=== PATIENT | female | born 1980 | race Caucasian/White ===

== ENCOUNTER 2019-01-31 20:20 | Inpatient (IN) | payer MEDICARE, OTHER ==
[~2019-01-31 20:20] MED LIST: LORazepam 2 MG/ML INJ IV STA
[2019-01-31 20:29] LABS: Glucose,Whole Blood 100 mg/dL (75-99)
[2019-01-31] MEDS ORDERED: LORazepam 2 MG/ML INJ IV STA ×2 (22:11→23:43)
--- NOTE | 2019-01-31 22:11 | ED ---
Seizure HPI - General Chief Complaint: Seizure Stated Complaint: Seizure Time Seen by Provider: 01/31/19 21:21 Source: patient Mode of arrival: EMS Limitations: no limitations - History of Present Illness Initial Comments: Mallory is a 38 her old female with a significant seizure history who presents the emergency department today after an apparent seizure. [facility] Patient admits that she is noncompliant with her medications and she often forgets to take them. Patient reports that she is on Keppra, Depakote and Vempat, she has missed oral doses of her medications recently. Per friend at bedside the patient had a seizure at the penitentiary, they report that she fell to the ground and was shaking and was unresponsive. Patient does not recall this event. - Related Data Home Medications Medication Instructions Recorded Confirmed Depakote(Unknown) 1 dose PO DIRECTED 01/31/19 Dilantin(Unknown) 1 dose PO DIRECTED 01/31/19 Gabapentin [Neurontin] 600 mg PO TID 01/31/19 01/31/19 Keppra(Unknown) 1 dose PO DIRECTED 01/31/19 QUEtiapine FUMARATE [SEROquel] 600 mg PO HS 01/31/19 01/31/19 Sertraline [Zoloft] 100 mg PO DAILY 01/31/19 01/31/19 Vimpat(Unknown) 1 dose PO DIRECTED 01/31/19 hydrOXYzine HCL [Atarax] 25 mg PO DAILY PRN 01/31/19 01/31/19 Allergies Allergy/AdvReac Type Severity Reaction Status Date / Time acetaminophen [From NyQuil] Allergy Rash/Hives Verified 01/31/19 22:07 dextromethorphan Allergy Rash/Hives Verified 01/31/19 22:07 [From NyQuil] diphenhydramine Allergy Rash/Hives Verified 01/31/19 22:07 [From Benadryl] doxylamine [From NyQuil] Allergy Rash/Hives Verified 01/31/19 22:07 lorazepam [From Ativan] Allergy Anaphylaxis Verified 01/31/19 22:07 pseudoephedrine [From NyQuil] Allergy Rash/Hives Verified 01/31/19 22:07 Review of Systems ROS Statement: Those systems with pertinent positive or pertinent negative responses have been documented in the HPI. ROS Other: All systems not noted in ROS Statement are negative. Past Medical History Past Medical History: Seizure Disorder History of Any Multi-Drug Resistant Organisms: None Reported Additional Past Surgical History / Comment(s): D&C Past Psychological History: Bipolar, Depression, PTSD Smoking Status: Current every day smoker Past Alcohol Use History: None Reported Past Drug Use History: None Reported - Past Family History family Family Medical History: No Reported History General Exam - General Exam Comments Initial Comments: Physical Exam GENERAL: Patient is well-developed and well-nourished. Patient is nontoxic and well-hydrated and is in no distress. HENT: Normocephalic, Atraumatic. EYES: PERRL, EOMI PULMONARY: Unlabored respirations. No audible rales rhonchi or wheezing was noted. CARDIOVASCULAR: RRR ABDOMEN: Obese, soft and nontender with normal bowel sounds. SKIN: Multiple scars on bilateral arms consistent with history of self harm : Deferred NEUROLOGIC: Postictal upon initial evaluation Noted to have 2 tonic clonic seizures in the emergency department MUSCULOSKELETAL: Normal extremities with adequate strength and full range of motion. No lower extremity swelling or edema. No calf tenderness. PSYCHIATRIC: Normal psychiatric evaluation Limitations: no limitations Course Vital Signs 01/31/19 01/31/19 01/31/19 20:22 21:55 23:06 Temperature 98.9 F Pulse Rate 99 100 89 Respiratory 20 18 18 Rate Blood Pressure 139/91 122/89 O2 Sat by Pulse 100 95 96 Oximetry 01/31/19 01/31/19 02/01/19 23:10 23:48 01:00 Temperature 98 F Pulse Rate 98 86 84 Respiratory 18 16 16 Rate Blood Pressure 137/99 130/86 116/80 O2 Sat by Pulse 96 98 95 Oximetry 02/01/19 02:18 Temperature Pulse Rate 93 Respiratory 16 Rate Blood Pressure 110/67 O2 Sat by Pulse 97 Oximetry - Reevaluation(s) Reevaluation #1: Patient seizing again, 2mg IV ativan ordered 01/31/19 22:10 Medical Decision Making - Medical Decision Making The patient was seen and evaluated, patient with a extensive history of seizure disorder and medication noncompliance presents after a seizure [facility]. Patient was noted to have a seizure here in the emergency department, Upon my initial evaluation the patient was postictal, she did receive IM Ativan due to lack of vascular access. Less than 20 minutes later the patient was noted to have a second seizure at that time IV access was obtained in the foot and she was given IV Ativan. Patient's labs resulted with CBC and CMP within normal limits both Depakote and phenytoin levels were undetectable IV Keppra, Depakote and phenytoin were ordered at this time decision was made platelets a right IJ central line for vascular access Central and was placed without complication Patient was noted to have a third seizure here in the emergency department, a third dose of Ativan was given Keppra was infusing Patient care was discussed with Dr. Camacho of the [facility] physician group who accepts admission to ICU for status epilepticus Patient care was discussed with Dr. Stanley who will accept the patient to the ICU if neurology is available to take call, patient care then discussed with neurology casino controller Dr Harrell who will be available for neurology consult tonight and throughout the day tomorrow. Patient admitted to the ICU for Status Epilepticus secondary to medication non- compliance. - Lab Data Result diagrams: 01/31/19 22:50 01/31/19 22:50 Lab Results 01/31/19 01/31/19 01/31/19 Range/Units 20:27 21:50 22:19 WBC (3.8-10.6) k/uL RBC (3.80-5.40) m/uL Hgb (11.4-16.0) gm/dL Hct (34.0-46.0) % MCV (80.0-100.0) fL MCH (25.0-35.0) pg MCHC (31.0-37.0) g/dL RDW (11.5-15.5) % Plt Count (150-450) k/uL Neutrophils % % Lymphocytes % % Monocytes % % Eosinophils % % Basophils % % Neutrophils # (1.3-7.7) k/uL Lymphocytes # (1.0-4.8) k/uL Monocytes # (0-1.0) k/uL Eosinophils # (0-0.7) k/uL Basophils # (0-0.2) k/uL Sodium (137-145) mmol/L Potassium (3.5-5.1) mmol/L Chloride (98-107) mmol/L Carbon Dioxide (22-30) mmol/L Anion Gap mmol/L BUN (7-17) mg/dL Creatinine (0.52-1.04) mg/dL Est GFR (CKD-EPI)AfAm (>60 ml/min/1.73 sqM) Est GFR (CKD-EPI)NonAf (>60 ml/min/1.73 sqM) Glucose (74-99) mg/dL POC Glucose (mg/dL) 100 H 88 (75-99) mg/dL POC Glu Presser Cotton Ginning THEODORA Marks OzAurora fuentes Danielle Plasma Lactic Acid Edilberto (0.7-2.0) mmol/L Calcium (8.4-10.2) mg/dL Total Bilirubin (0.2-1.3) mg/dL AST (14-36) U/L ALT (9-52) U/L Alkaline Phosphatase (38-126) U/L Total Protein (6.3-8.2) g/dL Albumin (3.5-5.0) g/dL Urine Opiates Screen Not Detected (NotDetected) Ur Oxycodone Screen Not Detected (NotDetected) Urine Methadone Screen Not Detected (NotDetected) Ur Propoxyphene Screen Not Detected (NotDetected) Ur Barbiturates Screen Detected H (NotDetected) Phenytoin ug/mL Valproic Acid ug/mL U Tricyclic Antidepress Detected H (NotDetected) Ur Phencyclidine Scrn Not Detected (NotDetected) Ur Amphetamines Screen Not Detected (NotDetected) U Methamphetamines Scrn Not Detected (NotDetected) U Benzodiazepines Scrn Not Detected (NotDetected) Urine Cocaine Screen Not Detected (NotDetected) U Marijuana (THC) Screen Not Detected (NotDetected) 01/31/19 01/31/19 01/31/19 Range/Units 22:50 22:50 22:50 WBC 10.1 (3.8-10.6) k/uL RBC 4.03 (3.80-5.40) m/uL Hgb 11.6 (11.4-16.0) gm/dL Hct 34.7 (34.0-46.0) % MCV 86.1 (80.0-100.0) fL MCH 28.7 (25.0-35.0) pg MCHC 33.3 (31.0-37.0) g/dL RDW 15.6 H (11.5-15.5) % Plt Count 292 (150-450) k/uL Neutrophils % 64 % Lymphocytes % 26 % Monocytes % 5 % Eosinophils % 3 % Basophils % 1 % Neutrophils # 6.5 (1.3-7.7) k/uL Lymphocytes # 2.6 (1.0-4.8) k/uL Monocytes # 0.5 (0-1.0) k/uL Eosinophils # 0.3 (0-0.7) k/uL Basophils # 0.1 (0-0.2) k/uL Sodium 140 (137-145) mmol/L Potassium 3.8 (3.5-5.1) mmol/L Chloride 107 (98-107) mmol/L Carbon Dioxide 26 (22-30) mmol/L Anion Gap 7 mmol/L BUN 13 (7-17) mg/dL Creatinine 0.62 (0.52-1.04) mg/dL Est GFR (CKD-EPI)AfAm >90 (>60 ml/min/1.73 sqM) Est GFR (CKD-EPI)NonAf >90 (>60 ml/min/1.73 sqM) Glucose 90 (74-99) mg/dL POC Glucose (mg/dL) (75-99) mg/dL POC Glu Presser Cotton Ginning ID Plasma Lactic Acid Edilberto 1.1 (0.7-2.0) mmol/L Calcium 8.3 L (8.4-10.2) mg/dL Total Bilirubin 0.1 L (0.2-1.3) mg/dL AST 18 (14-36) U/L ALT 23 (9-52) U/L Alkaline Phosphatase 60 (38-126) U/L Total Protein 6.3 (6.3-8.2) g/dL Albumin 3.5 (3.5-5.0) g/dL Urine Opiates Screen (NotDetected) Ur Oxycodone Screen (NotDetected) Urine Methadone Screen (NotDetected) Ur Propoxyphene Screen (NotDetected) Ur Barbiturates Screen (NotDetected) Phenytoin 5.0 ug/mL Valproic Acid <10.0 ug/mL U Tricyclic Antidepress (NotDetected) Ur Phencyclidine Scrn (NotDetected) Ur Amphetamines Screen (NotDetected) U Methamphetamines Scrn (NotDetected) U Benzodiazepines Scrn (NotDetected) Urine Cocaine Screen (NotDetected) U Marijuana (THC) Screen (NotDetected) - EKG Data -: EKG Interpreted by Me EKG shows normal: sinus rhythm EKG Comments: EKG was obtained due to history of seizure, EKG obtained at 2205, rate is 100 rhythm is sinus there is a normal axis there are normal intervals, NM 144, QRS 92, QTc is [address] elevations or depressions there is no evidence of acute ischemia or infarction. Critical Care Time Critical Care Time: Yes Total Critical Care Time: 45 Disposition Clinical Impression: Status epilepticus Disposition: ADMITTED IP TO THIS HOSP Condition: Serious
[2019-01-31 22:18] LABS: Amphetamine Screen,Urine Not Detected (NotDetected); Barbiturate Screen,Urine Detected (NotDetected); Benzodiazepines Screen,Urine Not Detected (NotDetected); Cocaine Screen,Urine Not Detected (NotDetected); Methadone Screen, Urine Not Detected (NotDetected); Opiate Screen,Urine Not Detected (NotDetected); Oxycodone Screen, Urine Not Detected (NotDetected); Phencyclidine Screen,Urine Not Detected (NotDetected); Tricyclic Antidepressant,Urine Detected (NotDetected); Urn Cannabinoid Scrn Not Detected (NotDetected)
[2019-01-31 22:21] LABS: Glucose,Whole Blood 88 mg/dL (75-99)
[2019-01-31] MEDS ORDERED: levETIRAcetam IV 1,000 MG in SALINE 1 100ML.BAG IVPB STA (23:07)
[2019-01-31 23:20] LABS: ALT 23 U/L (9-52); AST 18 U/L (14-36); African American GFR (CKD) >90 (>60 ml/min/1.73 sqM); Albumin 3.5 g/dL (3.5-5.0); Alkaline Phosphatase 60 U/L (38-126); Anion Gap 7 mmol/L; Blood Urea Nitrogen 13 mg/dL (7-17); Calcium 8.3 mg/dL (8.4-10.2); Carbon Dioxide 26 mmol/L (22-30); Chloride 107 mmol/L (98-107); Glucose 90 mg/dL (74-99); Potassium 3.8 mmol/L (3.5-5.1); Sodium 140 mmol/L (137-145); Total Bilirubin 0.1 mg/dL (0.2-1.3); Total Protein 6.3 g/dL (6.3-8.2)
[2019-01-31 23:22] LABS: Valproic Acid (Depakene) <10.0 ug/mL
[2019-01-31 23:25] LABS: Basophils # (A) 0.1 k/uL (0-0.2); Basophils % (A) 1 %; Eosinophils # (A) 0.3 k/uL (0-0.7); Eosinophils % (A) 3 %; HCT 34.7 % (34.0-46.0); HGB 11.6 gm/dL (11.4-16.0); Lymphocytes # (A) 2.6 k/uL (1.0-4.8); Lymphocytes % (A) 26 %; MCH 28.7 pg (25.0-35.0); MCHC 33.3 g/dL (31.0-37.0); MCV 86.1 fL (80.0-100.0); Monocytes # (A) 0.5 k/uL (0-1.0); Monocytes % (A) 5 %; Neutrophils # (A) 6.5 k/uL (1.3-7.7); Neutrophils % (A) 64 %; Platelet Count 292 k/uL (150-450); RBC 4.03 m/uL (3.80-5.40); RDW 15.6 % (11.5-15.5); WBC 10.1 k/uL (3.8-10.6)
[2019-01-31] MEDS ORDERED: PHENYTOIN SODIUM INJ 50 MG/ML 2 ML VIAL IVP STA (23:41)
[2019-01-31] MEDS ORDERED: SODIUM CHLORIDE 0.9% 1,000 ML IV ONE (23:45)
[2019-01-31] MEDS ORDERED: SODIUM CHLORIDE 0.9% 2,000 ML IV ONE (23:46)
[2019-02-01] MEDS ORDERED: PHENYTOIN SODIUM INJ 1,000 MG in SODIUM CHLORIDE 0.9% 100 ML IVPB ONE ×2
[2019-02-01] MEDS ORDERED: SODIUM CHLORIDE 0.9% 1,000 ML IV STA (00:54)
[2019-02-01] MEDS ORDERED: VALPROATE SODIUM 500 MG in SODIUM CHLORIDE 0.9% 100 ML IVPB ONE (01:00)
--- NOTE | 2019-02-01 01:02 | P.HPIM ---
History of Present Illness H&P Date: 01/31/19 Chief Complaint: seizure 38-year-old female with history of epilepsy, currently resides at a long term with medication noncompliance. Patient presented the hospital due to seizure attack at long term described as tonic-clonic seizure which is typical for attacks. Patient admits that she has not been taking her seizure medications as she ran out however she still has some Dilantin that she was rationing. She reports that her last breakthrough seizure was couple weeks ago. Patient admits to noncompliance with her medications due to inability to afford it. Patient denies any tongue biting bowel or bladder incontinence denies any head trauma or injuries before after the seizures. In the ED patient was witnessed to have 3 attacks of seizures back to back without fully regaining consciousness she was givenloading dose of Keppra and Dilantin and will be admitted to the ICU for close monitoring and neurology evaluation. Currently otherwise he denies any fevers chills coughing chest pain trouble breathing. Denies any focal neuro deficits at this time. Denies any changes in her vision and hearing. Denies any abdominal pain nausea vomiting changes in her bowel or urinary habits. Review of Systems Pertinent positives as noted in HPI. All other systems were reviewed and are negative Past Medical History Past Medical History: Seizure Disorder History of Any Multi-Drug Resistant Organisms: None Reported Additional Past Surgical History / Comment(s): D&C Past Psychological History: Bipolar, Depression, PTSD Smoking Status: Current every day smoker Past Alcohol Use History: None Reported Past Drug Use History: None Reported - Past Family History family Family Medical History: No Reported History Medications and Allergies Home Medications Medication Instructions Recorded Confirmed Type Depakote(Unknown) 1 dose PO DIRECTED 01/31/19 History Dilantin(Unknown) 1 dose PO DIRECTED 01/31/19 History Gabapentin [Neurontin] 600 mg PO TID 01/31/19 01/31/19 History Keppra(Unknown) 1 dose PO DIRECTED 01/31/19 History QUEtiapine FUMARATE [SEROquel] 600 mg PO HS 01/31/19 01/31/19 History Sertraline [Zoloft] 100 mg PO DAILY 01/31/19 01/31/19 History Vimpat(Unknown) 1 dose PO DIRECTED 01/31/19 History hydrOXYzine HCL [Atarax] 25 mg PO DAILY PRN 01/31/19 01/31/19 History Allergies Allergy/AdvReac Type Severity Reaction Status Date / Time acetaminophen [From NyQuil] Allergy Rash/Hives Verified 01/31/19 22:07 dextromethorphan Allergy Rash/Hives Verified 01/31/19 22:07 [From NyQuil] diphenhydramine Allergy Rash/Hives Verified 01/31/19 22:07 [From Benadryl] doxylamine [From NyQuil] Allergy Rash/Hives Verified 01/31/19 22:07 lorazepam [From Ativan] Allergy Anaphylaxis Verified 01/31/19 22:07 pseudoephedrine [From NyQuil] Allergy Rash/Hives Verified 01/31/19 22:07 Physical Exam Vitals: Vital Signs Temp Pulse Resp BP Pulse Ox 01/31/19 23:48 86 16 130/86 98 01/31/19 23:10 98 F 98 18 137/99 96 01/31/19 23:06 89 18 122/89 96 01/31/19 21:55 100 18 95 01/31/19 20:22 98.9 F 99 20 139/91 100 Intake and Output 01/31/19 01/31/19 02/01/19 14:59 22:59 06:59 Other: Weight 104.326 kg Constitutional: No acute distress, conversant, pleasant Eyes: Anicteric sclerae, moist conjunctiva, no lid-lag Pupils equal round reactive to light ENMT: NC/AT Oropharynx clear, no erythema, exudates Neck: Supple, FROM, no masses, or JVD No carotid bruits No thyromegaly Lungs: Clear to auscultation Clear to percussion Normal respiratory effort, no accessory muscle use Cardiovascular: Heart regular in rate and rhythm, No murmurs, gallops, or rubs No peripheral edema Abdominal: Soft Nontender, no guarding, rebound or rigidity Abdomen moving with respiration Normoactive bowel sounds No hepatomegaly, No splenomegaly No palpable mass No abdominal wall hernia noted Skin: Normal temperature, tone, texture, turgor No induration No subcutaneous nodules No rash, lesions No ulcers Extremities: No digital cyanosis No clubbing Pedal pulses intact and symmetrical Radial pulses intact and symmetrical No calf tenderness Psychiatric: Alert and oriented to person, place and time Appropriate affect fair judgment Neuro Muscles Strength 5/5 in all 4 extremities Sensation to light touch grossly present throughout Cranial nerves II-XII grossly intact No focal sensory deficits Lymphatics: no palpable cervical or supraclavicular , or inguinal lymph nodes Results CBC & Chem 7: 01/31/19 22:50 01/31/19 22:50 Labs: Abnormal Lab Results - Last 24 Hours (Table) 01/31/19 01/31/19 01/31/19 Range/Units 20:27 21:50 22:50 RDW 15.6 H (11.5-15.5) % POC Glucose (mg/dL) 100 H (75-99) mg/dL Calcium (8.4-10.2) mg/dL Total Bilirubin (0.2-1.3) mg/dL Ur Barbiturates Screen Detected H (NotDetected) U Tricyclic Antidepress Detected H (NotDetected) 01/31/19 Range/Units 22:50 RDW (11.5-15.5) % POC Glucose (mg/dL) (75-99) mg/dL Calcium 8.3 L (8.4-10.2) mg/dL Total Bilirubin 0.1 L (0.2-1.3) mg/dL Ur Barbiturates Screen (NotDetected) U Tricyclic Antidepress (NotDetected) Assessment and Plan Assessment: 38-year-old female with history of epilepsy. Admitted as an inpatient with anticipated length of stay more than 48 hours due to status epilepticus patient admits to noncompliance with medications had a seizure at the long term came to the hospital had 3 attacks back to back without regaining consciousness patient was loaded on Keppra and Dilantin was admitted to the ICU for further management and neuro eval Plan: status epilepticus with history of epilepsy Breakthrough seizures secondary to noncompliance with medications Patient loaded with Keppra and Dilantin Verify home medications Neurology evaluation serial neuro exam seizure precautions Fall precautions per [place] law patient not to drive a car, operate heavy machinery, operate public transportation, or swim unattended for at least 6 months after this breakthrough seizure DVT prophylaxis heparin subcu 3 times a day Surrogate decision-maker: mother CODE STATUSfull code Discussed with: Patient, ER,RN Anticipated discharge: 48-[address]:home A total of60 minutes was spent on the care of this complex patient more than 50% of the time was spent in counseling and care coordination.
--- NOTE | 2019-02-01 01:19 | XR ---
EXAM: XR Chest, 1 View CLINICAL HISTORY: central line TECHNIQUE: Frontal view of the chest. COMPARISON: No relevant prior studies available. FINDINGS: Lungs: Lungs are underinflated but clear Pleural space: Unremarkable. No pneumothorax. Heart: Unremarkable. No cardiomegaly. Mediastinum: Unremarkable. Bones/joints: Unremarkable. Tubes, lines and devices: Tip of right jugular central venous catheter projects over the region of right atrium, about a centimeter below the level of the leydi. IMPRESSION: Tip of right jugular central venous catheter projects over the region of right atrium, about a centimeter below the level of the leydi. No pneumothorax
[2019-02-01] MEDS ORDERED: NALOXONE 0.4 MG/ML 1 ML VIAL IV PRN (01:22)
[2019-02-01 02:29] LABS: Glucose,Whole Blood 105 mg/dL (75-99)
[2019-02-01 04:11] VITALS: TEMP 98.3
[2019-02-01 05:44] LABS: Basophils # (A) 0.1 k/uL (0-0.2); Basophils % (A) 1 %; Eosinophils # (A) 0.4 k/uL (0-0.7); Eosinophils % (A) 4 %; HCT 35.5 % (34.0-46.0); HGB 11.1 gm/dL (11.4-16.0); Lymphocytes # (A) 2.9 k/uL (1.0-4.8); Lymphocytes % (A) 28 %; MCH 27.9 pg (25.0-35.0); MCHC 31.2 g/dL (31.0-37.0); MCV 89.3 fL (80.0-100.0); Mean Platelet Volume 7.7; Monocytes # (A) 0.4 k/uL (0-1.0); Monocytes % (A) 4 %; Neutrophils # (A) 6.4 k/uL (1.3-7.7); Neutrophils % (A) 62 %; Platelet Count 274 k/uL (150-450); RBC 3.98 m/uL (3.80-5.40); RDW 15.3 % (11.5-15.5); WBC 10.3 k/uL (3.8-10.6)
[2019-02-01 05:55] LABS: African American GFR (CKD) >90 (>60 ml/min/1.73 sqM); Anion Gap 5 mmol/L; Blood Urea Nitrogen 10 mg/dL (7-17); Calcium 7.9 mg/dL (8.4-10.2); Carbon Dioxide 25 mmol/L (22-30); Chloride 109 mmol/L (98-107); Glucose 106 mg/dL (74-99); Potassium 3.9 mmol/L (3.5-5.1); Sodium 139 mmol/L (137-145)
[2019-02-01] MEDS ORDERED: HEPARIN SODIUM,PORCINE 5,000 UNIT/ML 1 ML VIAL SQ SCH (08:00)
[2019-02-01] MEDS ORDERED: LORazepam 2 MG/ML INJ IV STA (10:35)
[2019-02-01] MEDS ORDERED: levETIRAcetam IV 1,000 MG in SALINE 1 100ML.BAG IVPB SCH (11:00)
[2019-02-01 11:24] VITALS: BP 116/84; PULSE 87; RESP 12
[2019-02-01 11:50] LABS: Magnesium 1.8 mg/dL (1.6-2.3); Phenytoin (Dilantin) 8.4 ug/mL
[2019-02-01 11:52] LABS: Valproic Acid (Depakene) 26.8 ug/mL
--- NOTE | 2019-02-01 12:17 | P.DS ---
Providers Date of admission: 02/01/19 01:22 Expected date of discharge: 02/01/19 (Left AMA) Attending physician: Yan Camacho MD Consults: 02/01/19 01:04 Consult Physician Routine Consulting Provider: Luis Harrell Consult Reason/Comments: seizure, non compliance Do you want consulting provider notified?: Yes Primary care physician: Physician Nonstaff - Discharge Diagnosis(es) (1) Status epilepticus Current Visit: Yes Status: Acute (2) Left against medical advice Current Visit: Yes Status: Acute (3) Medical non-compliance Current Visit: Yes Status: Acute Hospital Course: The patient is placed 38-year-old obese female with a past medical history of seizure disorder that was admitted for status epilepticus secondary to medical noncompliance as the patient is admitted that she was not taking her medications. Apparently the patient recently moved to the area and has been living in a homeless [facility]it[facility] and has been unable to follow-up with her neurologist in [place] for refill of her medications. Patient had her typical described tonic-clonic seizures and apparently had 3 episodes the ER and was subsequently loaded with Keppra and Dilantin and admitted to the ICU for closer monitoring and neurology evaluation. The patient was noted to have subtherapeutic phenytoin and VPA levels, UDS was positive for barbiturates and TCAs. The patient was seen by neurology and myself and was becoming increasingly agitated by not being allowed to leave to smoke, she subsequently proceeded to smoke and her room and security was called to take her cigarettes away. The patient continued to be agitated and began pulling at her triple- lumen catheter, nursing was instructed to remove her catheter and the patient subsequently signed out AMA. Nursing was instructed to contact the patient to let her know that her AED would be sent to the pharmacy and be available for pickup. This discharge process took approximately 35 minutes. Focused exam Neuro: Cranial nerves 2- 12 grossly intact no focal deficits appreciated Patient Condition at Discharge: Undetermined Plan - Discharge Summary New Discharge Prescriptions: New Phenytoin Sodium Extended [Dilantin] 100 mg PO TID #90 cap levETIRAcetam [Keppra] 1,000 mg PO Q12HR #60 tab Continue Divalproex ER [Depakote ER] 500 mg PO TID #90 tab.er.24h Lacosamide [Vimpat] 50 mg PO BID #60 tablet No Action hydrOXYzine HCL [Atarax] 25 mg PO DAILY PRN PRN Reason: Anxiety Gabapentin [Neurontin] 600 mg PO TID Sertraline [Zoloft] 100 mg PO DAILY QUEtiapine FUMARATE [SEROquel] 600 mg PO HS levETIRAcetam [Keppra] 500 mg PO Q12HR Omeprazole [PriLOSEC] 20 mg PO DAILY Gabapentin 600 mg PO TID Discharge Medication List Gabapentin [Neurontin] 600 mg PO TID 01/31/19 [History] QUEtiapine FUMARATE [SEROquel] 600 mg PO HS 01/31/19 [History] Sertraline [Zoloft] 100 mg PO DAILY 01/31/19 [History] hydrOXYzine HCL [Atarax] 25 mg PO DAILY PRN 01/31/19 [History] Divalproex ER [Depakote ER] 500 mg PO TID #90 tab.er.24h 02/01/19 [Rx] Gabapentin 600 mg PO TID 02/01/19 [History] Lacosamide [Vimpat] 50 mg PO BID #60 tablet 02/01/19 [Rx] Omeprazole [PriLOSEC] 20 mg PO DAILY 02/01/19 [History] Phenytoin Sodium Extended [Dilantin] 100 mg PO TID #90 cap 02/01/19 [Rx] levETIRAcetam [Keppra] 1,000 mg PO Q12HR #60 tab 02/01/19 [Rx] levETIRAcetam [Keppra] 500 mg PO Q12HR 02/01/19 [History] Follow up Appointment(s)/Referral(s): Nonstaff,Physician [Primary Care Provider] - 1-2 days
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
[2019-02-01] MEDS ORDERED: PHENYTOIN SODIUM EXTENDED 100 MG CAP PO SCH (16:00)
[2019-02-01] MEDS ORDERED: DIVALPROEX 500 MG TABLET.DR PO SCH (16:00)
[2019-02-01] MEDS ORDERED: LACOSAMIDE 50 MG TABLET PO SCH (21:00)
== END 2019-02-01 11:55 | disposition left against medical advice (07) | DRG 101 ==
LOC: EC 20:20 → 2SICU 02-01 01:22
PROVIDERS: ADMIT Internal Medicine; ATTEND Internal Medicine
PROC: 05HM33Z Insertion of Infusion Device into Right Internal Jugular Vein, Percutaneous Approach (ICD-10-PCS; principal; 2019-02-01)
DX: G40.911 Epilepsy, unspecified, intractable, with status epilepticus (principal); Z68.41 Body mass index [BMI] 40.0-44.9, adult; E66.9 Obesity, unspecified; F17.210 Nicotine dependence, cigarettes, uncomplicated; F31.9 Bipolar disorder, unspecified; F43.10 Post-traumatic stress disorder, unspecified; Z79.899 Other long term (current) drug therapy; Z88.6 Allergy status to analgesic agent; Z88.5 Allergy status to narcotic agent; Z91.19 Patient's noncompliance with other medical treatment and regimen; Z88.8 Allergy status to other drugs, medicaments and biological substances; Z87.59 Personal history of other complications of pregnancy, childbirth and the puerperium
CPT/HCPCS: 36415; 36556; 80048; 80053; 80164; 80185; 80306; 83605; 83735; 85025; 93005; 96365; 96367; 96368; 96375; 96376; 99291

== ENCOUNTER 2019-02-01 13:29 | Emergency (ER) | payer MEDICARE, OTHER ==
[2019-02-01 13:49] VITALS: RESP 18; TEMP 98.9
--- NOTE | 2019-02-01 14:01 | ED ---
General Adult HPI - General Chief complaint: Recheck/Abnormal Lab/Rx Stated complaint: seizure Time Seen by Provider: 02/01/19 13:51 Source: patient Mode of arrival: ambulatory - History of Present Illness Initial comments: Dictation was produced using [employer] dictation software. please excuse any grammatical, word or spelling errors. Chief Complaint: 38-year-old female left AGAINST MEDICAL ADVICE from the intensive care unit this morning presents with request for readmission. History of Present Illness: Patient is a 38-year-old female she was recently admitted to intensive care unit for status epilepticus. Patient was not allowed to smoke cigarettes and became agitated. She left AGAINST MEDICAL ADVICE. On patient's way out of the hospital in the parking lot she had another seizure. She was convinced by a voice data communications engineer to turn around and come back to the hospital for readmission. And had a witnessed seizure by voice data communications engineer. She was sitting in wheelchair and had a seizure. She was gently brought to the ground were seizure stopped. Denies any pain at this time patient is apologetic and wants to be readmitted to the hospital. The ROS documented in this emergency department record has been reviewed and confirmed by me. Those systems with pertinent positive or negative responses have been documented in the HPI. All other systems are other negative and/or noncontributory. PHYSICAL EXAM: General Impression: Alert and oriented x3, not in acute distress HEENT: Normocephalic atraumatic, extra-ocular movements intact, pupils equal and reactive to light bilaterally, mucous membranes moist. Cardiovascular: Heart regular rate and rhythm, S1&S2 audible, no murmurs, rubs or gallops Chest: Lungs clear to auscultation bilaterally, no rhonchi, no wheeze, no rales Abdomen: Bowel sounds present, abdomen soft, non-tender, non-distended, no organomegaly Musculoskeletal: Pulses present and equal in all extremities, no peripheral rivera a Motor: no focal deficits noted Neurological: CN II-XII grossly intact, no focal motor or sensory deficits noted Skin: Intact with no visualized rashes Psych: Normal affect and mood ED course: 38-year-old female presents to the emergency Department with request for readmission. She was recently admitted to the intensive care unit for status epilepticus. As upon arrival shows heart rate of 107. Patient is well- appearing at this time there is no signs of trauma. Discussed patient case with some physician group was willing to accept patients care. Patient had another episode of seizure that lasted for about 30 seconds. She is given 2 mg of Ativan. Patient to be disposition back to intensive care unit. Pending discussion with implant polisher. Neurology be on consultation. - Related Data Home Medications Medication Instructions Recorded Confirmed QUEtiapine FUMARATE [SEROquel] 600 mg PO HS 01/31/19 02/01/19 Sertraline [Zoloft] 100 mg PO DAILY 01/31/19 02/01/19 hydrOXYzine HCL [Atarax] 25 mg PO DAILY PRN 01/31/19 02/01/19 Gabapentin 600 mg PO TID 02/01/19 02/01/19 Omeprazole [PriLOSEC] 20 mg PO DAILY 02/01/19 02/01/19 Previous Rx's Medication Instructions Recorded Divalproex ER [Depakote ER] 500 mg PO TID #90 tab.er.24h 02/01/19 Lacosamide [Vimpat] 50 mg PO BID #60 tablet 02/01/19 Phenytoin Sodium Extended 100 mg PO TID #90 cap 02/01/19 [Dilantin] levETIRAcetam [Keppra] 1,000 mg PO Q12HR #60 tab 02/01/19 Allergies Allergy/AdvReac Type Severity Reaction Status Date / Time acetaminophen [From NyQuil] Allergy Rash/Hives Verified 02/01/19 13:44 dextromethorphan Allergy Rash/Hives Verified 02/01/19 13:44 [From NyQuil] diphenhydramine Allergy Rash/Hives Verified 02/01/19 13:44 [From Benadryl] doxylamine [From NyQuil] Allergy Rash/Hives Verified 02/01/19 13:44 lorazepam [From Ativan] Allergy Anaphylaxis Verified 02/01/19 13:44 pseudoephedrine [From NyQuil] Allergy Rash/Hives Verified 02/01/19 13:44 Review of Systems ROS Statement: Those systems with pertinent positive or pertinent negative responses have been documented in the HPI. ROS Other: All systems not noted in ROS Statement are negative. Past Medical History Past Medical History: Asthma, Seizure Disorder History of Any Multi-Drug Resistant Organisms: None Reported Additional Past Surgical History / Comment(s): D&C Past Psychological History: Bipolar, Depression, PTSD Smoking Status: Current every day smoker Past Alcohol Use History: None Reported Past Drug Use History: None Reported - Past Family History family Family Medical History: No Reported History Course Vital Signs 02/01/19 13:44 Temperature 98.9 F Pulse Rate 107 H Respiratory 18 Rate Blood Pressure 115/78 O2 Sat by Pulse 96 Oximetry Disposition Clinical Impression: Status epilepticus Disposition: ADMITTED IP TO THIS [facility] Condition: Critical Referrals: Nonstaff,Physician [Primary Care Provider] - 1-2 days Decision Time: 14:37
[2019-02-01] MEDS ORDERED: LORazepam 2 MG/ML INJ IV STA ×2 (14:33→14:43)
[2019-02-01] MEDS ORDERED: NALOXONE 0.4 MG/ML 1 ML VIAL IV PRN (14:34)
[2019-02-01 14:37] VITALS: BP 124/80; PULSE 95
[2019-02-01] MEDS: levETIRAcetam IV 1,000 MG in SALINE 1 100ML.BAG IVPB STA ×2 (14:50→15:22)
== END 2019-02-01 15:55 | disposition other institution (70) ==
LOC: EC 13:29
DX: G40.901 Epilepsy, unspecified, not intractable, with status epilepticus (principal); F32.9 Major depressive disorder, single episode, unspecified; F43.10 Post-traumatic stress disorder, unspecified; F17.200 Nicotine dependence, unspecified, uncomplicated; Z79.899 Other long term (current) drug therapy; Z88.6 Allergy status to analgesic agent; Z88.8 Allergy status to other drugs, medicaments and biological substances; Z53.29 Procedure and treatment not carried out because of patient's decision for other reasons; Z53.8 Procedure and treatment not carried out for other reasons
CPT/HCPCS: 96365; 96375; 99283